=== PATIENT | male | born 1985 | race Caucasian/White ===

== ENCOUNTER 2017-09-18 02:23 | Emergency (ER) | payer SELFPAY ==
[~2017-09-18] VITALS: Ht 180.3 cm; Wt 120.0 kg
[2017-09-18] MEDS ORDERED: KETOROLAC 30MG/ML VIAL IV STA (02:53)
[2017-09-18] MEDS ORDERED: SODIUM CHLORIDE 0.9% 1,000 ML IV ONE (02:53)
[2017-09-18] MEDS ORDERED: TETANUS, DIPHTHERIA, PERTUSSIS VAC/PF 0.5ML (>7YR OLD) IM ONE (03:00)
[2017-09-18 05:20] VITALS: BP 117/67
== END 2017-09-18 05:20 | disposition home or self-care (01) ==
LOC: ER 02:32
DX: S06.0X9A Concussion with loss of consciousness of unspecified duration, initial encounter (principal); S01.01XA Laceration without foreign body of scalp, initial encounter; S00.83XA Contusion of other part of head, initial encounter; F10.129 Alcohol abuse with intoxication, unspecified; F12.10 Cannabis abuse, uncomplicated; Y90.9 Presence of alcohol in blood, level not specified; Y08.89XA Assault by other specified means, initial encounter; Y93.89 Activity, other specified; Y92.018 Other place in single-family (private) house as the place of occurrence of the external cause
CPT/HCPCS: 70450; 70486; 71045; 72125; 90471; 90715; 96361; 96374; 99285; J1885; J7030; Z7610